=== PATIENT | male | born 1950 | race Caucasian/White ===

== ENCOUNTER 2024-05-14 09:56 | Outpatient (CLI) | payer OTHER | END 2024-05-14 09:59 | disposition home or self-care (01) | LOC: LAB 09:56 | PROVIDERS: ATTEND Urology | DX: R97.20 Elevated prostate specific antigen [PSA] (principal) ==

== ENCOUNTER 2024-07-05 08:10 | Outpatient (CLI) | payer OTHER | END 2024-07-05 08:22 | disposition home or self-care (01) | LOC: SONOGRAMA 08:10 | PROVIDERS: ATTEND Urology | DX: N40.1 Benign prostatic hyperplasia with lower urinary tract symptoms (principal); N42.31 Prostatic intraepithelial neoplasia ==